=== PATIENT | female | born 1940 | race Caucasian/White ===

== ENCOUNTER → 2016-06-22 | Outpatient (CLI) | payer MEDICARE, OTHER ==
[~2016-06-22] MED LIST: ADV25050 INHALATION; ALPR0.254 PO; ESCI5TAB10 PO; LEVA15HF6 INH; NASO17 NASAL; NICO1PAT6 TD; PANT40TA4 PO; SIMV20TA PO; TIOT18CA INHALATION; TRAZ100T15 PO
== END | disposition home or self-care (01) ==
LOC: PUL 10:45
PROVIDERS: ATTEND Internal Medicine Pulmonary Disease
DX: Z02.9 Encounter for administrative examinations, unspecified (principal); Z53.29 Procedure and treatment not carried out because of patient's decision for other reasons